=== PATIENT | female | born 1960 | race Caucasian/White ===

== ENCOUNTER 2017-02-14 13:27 | Emergency (ER) | payer BC ==
[2017-02-14 14:44] VITALS: BP 114/61
--- NOTE | 2017-02-14 15:18 | UC ---
Throat Pain/Nasal Jonnie HPI - HPI Summary HPI Summary: Patient has had sinus pressure and drainage for the past 4. - History of Current Complaint Chief Complaint: UCGeneralIllness Stated Complaint: SINUS Time Seen by Provider: 02/14/17 15:12 Hx Obtained From: Patient ?: No Onset/Duration: Sudden Onset, Lasting Days Severity: Moderate Cough: None Associated Signs & Symptoms: Positive: Sinus Discomfort, Nasal Discharge - Allergies/Home Medications Allergies/Adverse Reactions: Allergies Allergy/AdvReac Type Severity Reaction Status Date / Time No Known Allergies Allergy Verified 02/14/17 14:37 Home Medications: Home Medications Pseudoephedrine TAB* [Sudafed TAB*] 30 mg PO Q6H PRN 02/14/17 [History Confirmed 02/14/17] PMH/Surg Hx/FS Hx/Imm Hx Previously Healthy: Yes - Surgical History Surgical History: Yes Surgery Procedure, Year, and Place: hysterecomy, tubal, tonsilectomy, right ovary & tube removal, gallbladder - Family History Known Family History: Negative: Cardiac Disease, Hypertension - Social History Alcohol Use: None Substance Use Type: None Smoking Status (MU): Heavy Every Day Tobacco Smoker Type: Cigarettes Amount Used/How Often: 1/2 PPD Household Exposure Type: Cigarettes Review of Systems Constitutional: Negative Skin: Negative Eyes: Negative ENT: Nasal Discharge Cardiovascular: Negative Gastrointestinal: Negative Genitourinary: Negative Motor: Negative Neurovascular: Negative Musculoskeletal: Negative Neurological: Headache Psychological: Negative All Other Systems Reviewed And Are Negative: Yes Physical Exam Triage Information Reviewed: Yes Appearance: Well-Appearing, Well-Nourished, Pain Distress Vital Signs: Initial Vital Signs Temp 98.1 F 02/14/17 14:40 Pulse 56 02/14/17 14:40 Resp 16 02/14/17 14:40 BP 114/61 02/14/17 14:40 Pulse Ox 100 02/14/17 14:40 Vital Signs Reviewed: Yes Eye Exam: Normal Eyes: Positive: Conjunctiva Clear ENT: Positive: Pharyngeal erythema, Nasal congestion, TM bulging Dental Exam: Normal Neck exam: Normal Neck: Positive: Supple, Nontender, No Lymphadenopathy Respiratory Exam: Normal Respiratory: Positive: Chest non-tender, Lungs clear, Normal breath sounds Cardiovascular Exam: Normal Cardiovascular: Positive: RRR, No Murmur, Pulses Normal Abdominal Exam: Normal Abdomen Description: Positive: Nontender, No Organomegaly, Soft Bowel Sounds: Positive: Present Musculoskeletal Exam: Normal Musculoskeletal: Positive: Strength Intact, ROM Intact, No Edema Neurological Exam: Normal Neurological: Positive: Alert, Muscle Tone Normal Psychological Exam: Normal Skin Exam: Normal Throat Pain/Nasal Course/Dx - Course Course Of Treatment: hx obtained, exam performed, meds reviewed. treated with prednsione, abx given and advised to hold off to see if it clears on its own with prednisone - Differential Dx/Diagnosis Differential Diagnosis/HQI/PQRI: Laryngitis, Otitis Media, Pharyngitis, Sinusitis, URI Provider Diagnoses: rhinosinusitis Discharge - Discharge Plan Condition: Stable Disposition: HOME Patient Education Materials: Rhinosinusitis (ED) Additional Instructions: start the prednisone tomorrow as directed. Start the antibiotic if no improvement over the next few days. Increase fluid intake and get plenty of rest.
== END 2017-02-14 15:28 | disposition home or self-care (01) ==
LOC: UCCORT 13:27
DX: J32.9 Chronic sinusitis, unspecified (principal); F17.210 Nicotine dependence, cigarettes, uncomplicated
CPT/HCPCS: 99212; G0463

== ENCOUNTER 2017-07-19 10:15 | Emergency (ER) | payer BC ==
[2017-07-19 10:25] VITALS: BP 128/63
--- NOTE | 2017-07-19 10:41 | UC ---
Throat Pain/Nasal Jonnie HPI - HPI Summary HPI Summary: Patient has had sinus congestion and pressure for the last 10 days. today has increased cough and sore throat - History of Current Complaint Chief Complaint: UCRespiratory Stated Complaint: CHEST CONGESTION Time Seen by Provider: 07/19/17 10:19 Hx Obtained From: Patient ?: No Onset/Duration: Sudden Onset, Lasting Days - Allergies/Home Medications Allergies/Adverse Reactions: Allergies Allergy/AdvReac Type Severity Reaction Status Date / Time No Known Allergies Allergy Verified 07/19/17 10:21 PMH/Surg Hx/FS Hx/Imm Hx Previously Healthy: Yes - Surgical History Surgical History: Yes Surgery Procedure, Year, and Place: hysterecomy, tubal, tonsilectomy, right ovary & tube removal, gallbladder - Family History Known Family History: Negative: Cardiac Disease, Hypertension - Social History Alcohol Use: None Substance Use Type: None Smoking Status (MU): Heavy Every Day Tobacco Smoker Type: Cigarettes Amount Used/How Often: 1/2 PPD Household Exposure Type: Cigarettes - Immunization History Most Recent Influenza Vaccination: NONE 2016 Review of Systems Constitutional: Negative Skin: Negative Eyes: Negative ENT: Sore Throat, Nasal Discharge, Sinus Congestion, Sinus Pain/Tenderness Respiratory: Cough Cardiovascular: Negative Gastrointestinal: Negative Genitourinary: Negative Motor: Negative Neurovascular: Negative Musculoskeletal: Negative Neurological: Negative Psychological: Negative All Other Systems Reviewed And Are Negative: Yes Physical Exam Triage Information Reviewed: Yes Appearance: Well-Appearing, Well-Nourished, Pain Distress Vital Signs: Initial Vital Signs Temp 98 F 07/19/17 10:21 Pulse 63 07/19/17 10:21 Resp 18 07/19/17 10:21 BP 128/63 07/19/17 10:21 Pulse Ox 100 07/19/17 10:21 Vital Signs Reviewed: Yes Eye Exam: Normal Eyes: Positive: Conjunctiva Clear ENT: Positive: Pharyngeal erythema - with posterior exudate, TMs normal, TM bulging Dental Exam: Normal Neck exam: Normal Neck: Positive: Supple, Nontender, Enlarged Nodes @ - bilateral cervical Respiratory Exam: Normal Respiratory: Positive: Chest non-tender, Lungs clear, Normal breath sounds Cardiovascular Exam: Normal Cardiovascular: Positive: RRR, No Murmur, Pulses Normal Abdominal Exam: Normal Abdomen Description: Positive: Nontender, No Organomegaly, Soft Bowel Sounds: Positive: Present Musculoskeletal Exam: Normal Musculoskeletal: Positive: Strength Intact, ROM Intact Neurological: Positive: Alert, Muscle Tone Normal Psychological: Positive: Normal Response To Family Skin Exam: Normal Throat Pain/Nasal Course/Dx - Course Course Of Treatment: hx obtained, exam performed ,meds reviewed, treated for sinusitis - Differential Dx/Diagnosis Differential Diagnosis/HQI/PQRI: Laryngitis, Otitis Media, Pharyngitis, Sinusitis Provider Diagnoses: sinusitis Discharge - Discharge Plan Condition: Stable Disposition: HOME Prescriptions: Amoxicillin PO (*) [Amoxicillin 875 MG (*)] 875 mg PO BID #20 tab Patient Education Materials: Sinusitis (ED) Referrals: Regina Baer [Primary Care Provider] -
== END 2017-07-19 10:50 | disposition home or self-care (01) ==
LOC: UCCORT 10:15
DX: J32.9 Chronic sinusitis, unspecified (principal); F17.210 Nicotine dependence, cigarettes, uncomplicated
CPT/HCPCS: 99212; G0463

== ENCOUNTER 2018-05-23 11:37 | Emergency (ER) | payer BC ==
--- NOTE | 2018-05-23 12:35 | UC ---
Complaint Female HPI - HPI Summary HPI Summary: patient has lower right side abd of back pain---has had ovaries and uterus removed, no urinary symptoms--did eat a donut today, no fevers nausea or vomiting - History Of Current Complaint Hx Obtained From: Patient ?: No Onset/Duration: Sudden Onset, Lasting Days - 1, Still Present Timing: Constant Severity Initially: Mild Severity Currently: Mild Character: Dull Aggravating Factor(s): Nothing Alleviating Factor(s): Nothing Associated Signs And Symptoms: Positive: Negative <Chelo Hollins - Last Filed: 05/23/18 15:17> <Maverick العراقي - Last Filed: 05/24/18 07:00> - History Of Current Complaint Chief Complaint: UCBackPain Stated Complaint: BACK PAIN Time Seen by Provider: 05/23/18 12:34 - Allergies/Home Medications Allergies/Adverse Reactions: Allergies Allergy/AdvReac Type Severity Reaction Status Date / Time No Known Allergies Allergy Verified 05/23/18 12:29 Home Medications: Home Medications NK [No Home Medications Reported] 05/23/18 [History Confirmed 05/23/18] PMH/Surg Hx/FS Hx/Imm Hx Previously Healthy: Yes - Surgical History Surgical History: Yes Surgery Procedure, Year, and Place: hysterecomy, tubal, tonsilectomy, right ovary & tube removal, gallbladder - Family History Known Family History: Negative: Cardiac Disease, Hypertension - Social History Occupation: Employed Full-time Lives: With Family Alcohol Use: None Substance Use Type: None Smoking Status (MU): Heavy Every Day Tobacco Smoker Type: Cigarettes Amount Used/How Often: 1/2 PPD Have You Smoked in the Last Year: Yes Household Exposure Type: Cigarettes - Immunization History Most Recent Influenza Vaccination: NONE 2016 <Chelo Hollins - Last Filed: 05/23/18 15:17> Review of Systems Constitutional: Negative Skin: Negative Eyes: Negative ENT: Negative Respiratory: Negative Cardiovascular: Negative Gastrointestinal: Abdominal Pain - right lower Genitourinary: Frequency Motor: Negative Neurovascular: Negative Musculoskeletal: Negative Neurological: Negative Psychological: Negative Is Patient Immunocompromised?: No All Other Systems Reviewed And Are Negative: Yes <Chelo Hollins - Last Filed: 05/23/18 15:17> Physical Exam Triage Information Reviewed: Yes Appearance: Well-Appearing, No Pain Distress, Well-Nourished Vital Signs Reviewed: Yes Eye Exam: Normal Eyes: Positive: Conjunctiva Clear ENT Exam: Normal ENT: Positive: Normal ENT inspection, Hearing grossly normal. Negative: Nasal congestion, TMs normal, Muffled voice, Hoarse voice, Dental tenderness, Sinus tenderness Dental Exam: Normal Neck exam: Normal Neck: Positive: Supple, Nontender, No Lymphadenopathy Respiratory Exam: Normal Respiratory: Positive: Chest non-tender, Lungs clear, Normal breath sounds, No respiratory distress, No accessory muscle use Cardiovascular Exam: Normal Cardiovascular: Positive: RRR, No Murmur, Pulses Normal, Brisk Capillary Refill Abdominal Exam: Other Abdomen Description: Positive: No Organomegaly, Soft, McBurney's Point Tenderness - minimal discomfort in rlq, Other: - no psoas sign, no peritineal signs, able to jump up and down without discomfort. Negative: CVA Tenderness (R ), CVA Tenderness (L), Distended, Guarding Bowel Sounds: Positive: Present Musculoskeletal Exam: Normal Musculoskeletal: Positive: Strength Intact, ROM Intact, No Edema Neurological Exam: Normal Neurological: Positive: Alert, Muscle Tone Normal Psychological Exam: Normal Skin Exam: Normal <Chelo Hollins - Last Filed: 05/23/18 15:17> Vital Signs: Initial Vital Signs Temp 98.2 F 05/23/18 12:29 Pulse 63 05/23/18 12:29 Resp 16 05/23/18 12:29 BP 124/65 05/23/18 12:29 Pulse Ox 100 05/23/18 12:29 <Maverick العراقي - Last Filed: 05/24/18 07:00> Diagnostics - Laboratory Diagnostic Studies Completed/Ordered: UA- WNL <Chelo Hollins - Last Filed: 05/23/18 15:17> Complaint Female Dx - Course Course Of Treatment: Patient refusing to go to hospital at this time, reviewed options of watchfull waiting with the patient---patient is agreeable to go if symptoms do not resolve or worsen in any way - Differential Dx/Diagnosis Provider Diagnoses: acute abdomen pain <Chelo Hollins Last Filed: 05/23/18 15:17> Discharge - Sign-Out/Discharge Documenting (check all that apply): Discharge/Admit/Transfer - Billing Disposition and Condition Condition: STABLE Disposition: Home <Chelo Hollins - Last Filed: 05/23/18 15:17> - Billing Disposition and Condition Condition: STABLE Disposition: Home <Maverick العراقي - Last Filed: 05/24/18 07:00> - Discharge Plan Condition: Stable Disposition: HOME Patient Education Materials: Acute Abdominal Pain (ED) Referrals: Regina Baer [Primary Care Provider] - 1 Day Additional Instructions: I think watchful waiting is a reasonable plan with these very nonspecific symptoms. She to have increasing pain nausea feel like to not hungry, go directly to the emergency department for further evaluation. There is no recent weight until you get a fever other symptoms are likely to start first. The limited examination were able to do any urgent care does not rule out appendicitis or an early appendicitis Per institutional requirements, I have reviewed the chart, however, I was not consulted specifically or made aware of this patient by the above midlevel provider. I did not personally evaluate, interact with , or disposition this patient.
[2018-05-23 12:40] VITALS: BP 124/65
== END 2018-05-23 13:05 | disposition home or self-care (01) ==
LOC: UCCORT 11:37
DX: R10.9 Unspecified abdominal pain (principal); F17.210 Nicotine dependence, cigarettes, uncomplicated
CPT/HCPCS: 81003; 99211; G0463

== ENCOUNTER 2018-06-18 21:06 | Emergency (ER) | payer BC ==
[2018-06-18] MEDS ORDERED: Lidocaine 1%* 5 ML VIAL INJ ONE (21:15)
[2018-06-18 21:17] VITALS: BP 118/63
[2018-06-18] MEDS ORDERED: Tetan/Diph/Pertus SYR(Tdap)* 0.5 ML SYR(BOOSTRIX) use SYR IM ONE (21:17)
--- NOTE | 2018-06-18 21:27 | UC ---
Laceration HPI - HPI Summary HPI Summary: 57 year old female presents with superficial laceration to palmar surface proximal left thumb that occurred approximately 2030 this evening while cutting a tomato with a knife. Bleeding controlled at time of presentation. Unknown tetanus status. - History Of Current Complaint Stated Complaint: LT HAND LACERATION Time Seen by Provider: 06/18/18 21:14 Hx Obtained From: Patient Laceration Location: Hand - left thumb Mechanism Of Injury: Sharp Trauma Severity: Mild Pain Intensity: 2 Aggravating Factors: Nothing Hands: 1 - 1 cm superficial linear laceration Related History: Dominant Hand Right - left thumb (see diagram) - Allergies/Home Medications Allergies/Adverse Reactions: Allergies Allergy/AdvReac Type Severity Reaction Status Date / Time No Known Allergies Allergy Verified 06/18/18 21:18 PMH/Surg Hx/FS Hx/Imm Hx - Additional Past Medical History Additional PMH: non-contributory - Surgical History Surgical History: Yes Surgery Procedure, Year, and Place: hysterecomy, tubal, tonsilectomy, right ovary & tube removal, gallbladder - Family History Known Family History: Positive: Other - non-contributory - Social History Occupation: Employed Full-time Lives: With Family Alcohol Use: None Substance Use Type: None Smoking Status (MU): Heavy Every Day Tobacco Smoker Type: Cigarettes Amount Used/How Often: 1/2 PPD Have You Smoked in the Last Year: Yes Household Exposure Type: Cigarettes - Immunization History Most Recent Influenza Vaccination: NONE 2016 Review of Systems Constitutional: Negative Skin: Other - See HPI Is Patient Immunocompromised?: No All Other Systems Reviewed And Are Negative: Yes Physical Exam Triage Information Reviewed: Yes Appearance: Well-Appearing, No Pain Distress, Well-Nourished Vital Signs: Initial Vital Signs Temp 98.3 F 06/18/18 21:14 Pulse 70 06/18/18 21:14 Resp 16 06/18/18 21:14 BP 118/63 06/18/18 21:14 Pulse Ox 100 06/18/18 21:14 Vital Signs Reviewed: Yes Respiratory: Positive: No respiratory distress Cardiovascular: Positive: Brisk Capillary Refill Musculoskeletal Exam: Normal, Other - Good flexion and extension to resistance Neurological Exam: Other - sensation intact distally Skin: Positive: Other - Superficial laceration (see diagram). Explored under bloodless field. No FB or tendon involvement noted. Laceration Repair - Laceration Repair 1 Description: Linear Laceration Size After Repair: Length (cm) - 1 cm Type Injection: Local Anesthesia Used: 1.0% Lido - 1 ml Cleansing Completed Via Routine Prep: Yes Irrigation With Pressure Irrigation Device: Yes Closure Material: Sutures Closure Method: Single Layer Suture Of: Skin Suture Type: Prolene - 5.0 Prolene. 3 interrupted sutures placed. Laceration Course/Dx - Course/Dx Course Of Treatment: Patient with superficial 1 cm laceration to left thumb. Laceration repaired with 3 interrupted sutures using 5.0 Prolene and dressed with a gauze dressing. Wound care instructions provided. Patient to follow up with PCP in 7 days for suture removal. - Differential Dx - Laceration/Wound Provider Diagnoses: laceration left thumb Discharge - Sign-Out/Discharge Documenting (check all that apply): Patient Departure - Discharge Plan Condition: Stable Disposition: HOME Patient Education Materials: Care For Your Stitches (DC), Finger Laceration (ED ) Referrals: Regina Baer [Primary Care Provider] - 7 Days (for suture removal) Additional Instructions: The numbing medication used to suture your laceration will where off in about 3- 4 hours. You may take an over the counter pain medication such as acetaminophen (Tylenol) or ibuprofen (Advil, Motrin) as needed for pain. Keep current dressing in place for the next 24 hours. Do not get it wet. After 24 hours you may wash and shower as normal. Avoid activities where you would have the hand submerged under water. Be sure to clean the wound with soap and water at least once daily. Apply a small amount of antibiotic ointment and keep covered with a dressing. Follow up with your primary care provider in 7 days for suture removal. Seek immediate medical attention for fever greater than 100.5 F, increased pain , redness that spreads, swelling, numbness or tingling in the finger, loss of function of the finger, or any pus draining from the wound. - Billing Disposition and Condition Condition: STABLE Disposition: Home
== END 2018-06-18 22:05 | disposition home or self-care (01) ==
LOC: UCCORT 21:06
DX: F17.210 Nicotine dependence, cigarettes, uncomplicated (principal); S61.012A Laceration without foreign body of left thumb without damage to nail, initial encounter; W26.0XXA Contact with knife, initial encounter; Y93.G1 Activity, food preparation and clean up; Y92.9 Unspecified place or not applicable
CPT/HCPCS: 12001; 90471; 90715; 99211; G0463

== ENCOUNTER 2018-12-01 08:16 | Emergency (ER) | payer BC ==
[2018-12-01 08:32] VITALS: BP 124/66
--- NOTE | 2018-12-01 09:15 | UC ---
Respiratory Complaint HPI - HPI Summary HPI Summary: The patient is a 58-year-old female with about a 24-hour history of fever chills runny nose congestion cough headache and myalgias. She was recently exposed to flu at her workplace. He denies any shortness of breath. She denies any nausea vomiting or diarrhea. - History of Current Complaint Chief Complaint: UCRespiratory Stated Complaint: COUGH Time Seen by Provider: 12/01/18 08:26 Hx Obtained From: Patient Onset/Duration: Gradual Onset, Lasting Hours Timing: Constant Severity Initially: Moderate Severity Currently: Moderate Pain Intensity: 4 Pain Scale Used: 0-10 Numeric Character: Cough: Nonproductive Aggravating Factors: Nothing Alleviating Factors: Nothing Associated Signs And Symptoms: Positive: Fever, Chills, URI, Nasal Congestion - Allergies/Home Medications Allergies/Adverse Reactions: Allergies Allergy/AdvReac Type Severity Reaction Status Date / Time No Known Allergies Allergy Verified 12/01/18 08:27 Home Medications: Home Medications guaiFENesin ER TAB [Mucinex*] 600 mg PO BID PRN 12/01/18 [History Confirmed ] PMH/Surg Hx/FS Hx/Imm Hx Previously Healthy: Yes - Surgical History Surgical History: Yes Surgery Procedure, Year, and Place: hysterecomy, tubal, tonsilectomy, right ovary & tube removal, gallbladder - Family History Known Family History: Positive: Other - non-contributory Negative: Cardiac Disease, Hypertension - Social History Alcohol Use: None Substance Use Type: None Smoking Status (MU): Heavy Every Day Tobacco Smoker Type: Cigarettes Amount Used/How Often: 1/2 PPD Have You Smoked in the Last Year: Yes Household Exposure Type: Cigarettes - Immunization History Most Recent Influenza Vaccination: NONE 2017 Review of Systems All Other Systems Reviewed And Are Negative: Yes Constitutional: Positive: Fever, Chills, Fatigue Skin: Positive: Negative Eyes: Positive: Negative ENT: Positive: Nasal Discharge, Sinus Congestion, Sinus Pain/Tenderness Respiratory: Positive: Cough Cardiovascular: Positive: Negative Gastrointestinal: Positive: Negative Genitourinary: Positive: Negative Motor: Positive: Negative Neurovascular: Positive: Negative Musculoskeletal: Positive: Negative Neurological: Positive: Negative Psychological: Positive: Negative Physical Exam Triage Information Reviewed: Yes Appearance: Well-Appearing, No Pain Distress, Well-Nourished Vital Signs: Initial Vital Signs Temp 99.3 F 12/01/18 08:28 Pulse 74 12/01/18 08:28 Resp 18 12/01/18 08:28 BP 124/66 12/01/18 08:28 Pulse Ox 99 12/01/18 08:28 Vital Signs Reviewed: Yes Eyes: Positive: Conjunctiva Clear ENT: Positive: Hearing grossly normal, Nasal congestion, Nasal drainage, Uvula midline. Negative: Tonsillar swelling, Tonsillar exudate, Trismus, Muffled voice, Hoarse voice, Sinus tenderness Neck: Positive: Supple, Nontender, No Lymphadenopathy Respiratory: Positive: Lungs clear, Normal breath sounds, No respiratory distress Cardiovascular: Positive: RRR, No Murmur Abdomen Description: Positive: Nontender, No Organomegaly, Soft. Negative: CVA Tenderness (R), Distended, Guarding Musculoskeletal: Positive: ROM Intact, No Edema Neurological: Positive: Alert Psychological Exam: Normal Skin Exam: Normal UC Diagnostic Evaluation - Laboratory O2 Sat by Pulse Oximetry: 99 - normal/ not hypoxic Respiratory Course/Dx - Differential Dx/Diagnosis Provider Diagnosis: Influenza-like illness Discharge - Sign-Out/Discharge Documenting (check all that apply): Patient Departure All imaging exams completed and their final reports reviewed: No Studies - Discharge Plan Condition: Stable Disposition: HOME Prescriptions: Oseltamivir CAP* [Tamiflu CAP*] 75 mg PO BID #10 cap Patient Education Materials: Influenza (ED) Forms: *Work Release Referrals: Regina Baer [Primary Care Provider] - 5 Days (if not better) Additional Instructions: I suspect the flu or flu like illness - Billing Disposition and Condition Condition: STABLE Disposition: Home
== END 2018-12-01 09:27 | disposition home or self-care (01) ==
LOC: UCCORT 08:16
DX: J11.1 Influenza due to unidentified influenza virus with other respiratory manifestations (principal); Z20.828 Contact with and (suspected) exposure to other viral communicable diseases; F17.210 Nicotine dependence, cigarettes, uncomplicated
CPT/HCPCS: 99212; G0463

== ENCOUNTER 2019-03-11 13:52 | Emergency (ER) | payer BC ==
[2019-03-11 14:46] VITALS: BP 117/62
--- NOTE | 2019-03-11 15:19 | UC ---
Lower Extremity/Ankle HPI - HPI Summary HPI Summary: left 5th toe pain x 4 days stubbed her toe on a table 4 days ago pain and swelling of left 5th toe , pain is 7 out of 10 , worse with walking, better with rest and ice - History of Current Complaint Chief Complaint: UCLowerExtremity Stated Complaint: LT FOOT INJURY Time Seen by Provider: 03/11/19 14:39 Hx Obtained From: Patient Onset/Duration: Sudden Onset, Lasting Days - 4, Still Present Severity Initially: Moderate Severity Currently: Moderate Pain Intensity: 8 Aggravating Factor(s): Standing, Ambulation Alleviating Factor(s): Rest, Elevation, Ice Able to Bear Weight: Yes - Allergies/Home Medications Allergies/Adverse Reactions: Allergies Allergy/AdvReac Type Severity Reaction Status Date / Time No Known Allergies Allergy Verified 03/11/19 14:42 Home Medications: Home Medications NK [No Home Medications Reported] 03/11/19 [History Confirmed 03/11/19] PMH/Surg Hx/FS Hx/Imm Hx Previously Healthy: Yes - Surgical History Surgical History: Yes Surgery Procedure, Year, and Place: hysterecomy, tubal, tonsilectomy, right ovary & tube removal, gallbladder - Family History Known Family History: Positive: Other - non-contributory Negative: Cardiac Disease, Hypertension, Diabetes - Social History Alcohol Use: None Substance Use Type: None Smoking Status (MU): Heavy Every Day Tobacco Smoker Type: Cigarettes Amount Used/How Often: 1/2 PPD Have You Smoked in the Last Year: Yes Household Exposure Type: Cigarettes - Immunization History Most Recent Influenza Vaccination: NONE 2017 Review of Systems All Other Systems Reviewed And Are Negative: Yes Constitutional: Positive: Negative Skin: Positive: Negative Eyes: Positive: Negative ENT: Positive: Negative Is Patient Immunocompromised?: No Physical Exam Triage Information Reviewed: Yes Appearance: Well-Appearing, No Pain Distress, Well-Nourished Vital Signs: Initial Vital Signs Temp 98.5 F 03/11/19 14:43 Pulse 63 03/11/19 14:43 Resp 16 03/11/19 14:43 BP 117/62 03/11/19 14:43 Pulse Ox 100 03/11/19 14:43 Vital Signs Reviewed: Yes Eye Exam: Normal Eyes: Positive: Conjunctiva Clear ENT: Positive: Normal ENT inspection, Hearing grossly normal, Pharynx normal Neck exam: Normal Neck: Positive: Supple, Nontender, No Lymphadenopathy Respiratory: Positive: Chest non-tender, Lungs clear, Normal breath sounds Cardiovascular: Positive: RRR, No Murmur, Pulses Normal Musculoskeletal: Positive: Other: - left 5th toe , + swelling , bruising, tender to touch Diagnostics - Radiology No standard instances Radiology Interpretation Completed By: Radiologist Summary of Radiographic Findings: xray left 5th toe : IMPRESSION: NONDISPLACED FRACTURE OF THE PROXIMAL PHALANX OF THE FIFTH DIGIT Lower Extremity Course/Dx - Differential Dx/Diagnosis Provider Diagnosis: Fracture of fifth toe, left, closed Discharge - Sign-Out/Discharge Documenting (check all that apply): Patient Departure All imaging exams completed and their final reports reviewed: Yes - Discharge Plan Condition: Stable Disposition: HOME Patient Education Materials: Toe Fracture (ED) Referrals: Regina Baer [Primary Care Provider] - 7 Days - Billing Disposition and Condition Condition: STABLE Disposition: Home
== END 2019-03-11 15:19 | disposition home or self-care (01) ==
LOC: UCCORT 13:52
DX: S62.647A Nondisplaced fracture of proximal phalanx of left little finger, initial encounter for closed fracture (principal); F17.210 Nicotine dependence, cigarettes, uncomplicated; W22.8XXA Striking against or struck by other objects, initial encounter; Y92.9 Unspecified place or not applicable
CPT/HCPCS: 99211; G0463